=== PATIENT | male | born 1980 | race American Indian/Alaskan Native ===

== ENCOUNTER 2018-09-09 20:02 | Emergency (ER) | payer SELFPAY ==
[2018-09-09 21:12] LABS: Basophils # (Auto) 0.1 K/mm3 (0.0-0.1); Basophils % (Auto) 1.1 % (0.0-1.8); Eosinophils # (Auto) 0.2 K/mm3 (0.0-0.4); Eosinophils % (Auto) 1.6 % (0.0-4.3); Hematocrit 42.5 % (35.5-45.6); Hemoglobin 14.6 gm/dl (11.8-15.2); Lymphocytes # (Auto) 3.1 K/mm3 (1.2-5.4); Lymphocytes % (Auto) 30.8 % (13.4-35.0); Mean Corpuscular HGB Conc 35 % (32-34); Mean Corpuscular Volume 83 fl (84-94); Monocytes # (Auto) 0.7 K/mm3 (0.0-0.8); Monocytes % (Auto) 7.4 % (0.0-7.3); Platelet Count 378 K/mm3 (140-440); Red Blood Count 5.13 M/mm3 (3.65-5.03); Red Cell Distribution Width 14.9 % (13.2-15.2)
[2018-09-09 21:33] LABS: Alanine Aminotransferase 17 units/L (7-56); Albumin 4.2 g/dL (3.9-5); BUN/Creatinine Ratio 12; Blood Urea Nitrogen 11 mg/dL (9-20); Calcium 9.1 mg/dL (8.4-10.2); Hemolysis Index 3
[2018-09-09 22:07] LABS: Bilirubin,Urine NEG (Negative); Blood,Urine NEG (Negative); Color,Urine Yellow (Yellow); Protein,Urine <15 mg/dL mg/dL (Negative); Urobilinogen,Urine < 2.0 mg/dL (<2.0)
[2018-09-09] MEDS ORDERED: TORADOL IV STA (23:54)
[2018-09-09] MEDS ORDERED: ZOFRAN IV STA (23:54)
[2018-09-10] MEDS ORDERED: MORPHINE ONE (02:57)
[2018-09-10] MEDS ORDERED: ZOFRAN ONE (02:57)
[2018-09-10] MEDS ORDERED: ZOFRAN IV ONE (03:00)
[2018-09-10] MEDS ORDERED: MORPHINE IV ONE (03:00)
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
[2018-09-10 04:15] VITALS: BP 132/78
== END 2018-09-10 04:18 | disposition home or self-care (01) ==
LOC: ED 20:02
DX: K59.00 Constipation, unspecified (principal); I10 Essential (primary) hypertension; G47.30 Sleep apnea, unspecified; Z88.0 Allergy status to penicillin; Z91.013 Allergy to seafood
CPT/HCPCS: 36415; 74177; 80053; 81001; 83690; 85025; 96374; 96375; 96376; 99284; J1885; J2270; J2405; Q9967

== ENCOUNTER 2018-10-19 07:42 | Emergency (ER) | payer OTHER ==
[2018-10-19 08:17] LABS: Basophils # (Auto) 0.1 K/mm3 (0.0-0.1); Basophils % (Auto) 0.7 % (0.0-1.8); Eosinophils # (Auto) 0.1 K/mm3 (0.0-0.4); Hematocrit 44.4 % (35.5-45.6); Lymphocytes # (Auto) 4.1 K/mm3 (1.2-5.4); Lymphocytes % (Auto) 37.6 % (13.4-35.0); Mean Corpuscular HGB Conc 34 % (32-34); Mean Corpuscular Volume 82 fl (84-94); Monocytes # (Auto) 0.8 K/mm3 (0.0-0.8); Monocytes % (Auto) 7.7 % (0.0-7.3); Platelet Count 394 K/mm3 (140-440); Red Blood Count 5.44 M/mm3 (3.65-5.03)
[2018-10-19 08:43] LABS: BUN/Creatinine Ratio 13; Blood Urea Nitrogen 9 mg/dL (9-20); Calcium 9.3 mg/dL (8.4-10.2); Hemolysis Index 10
[2018-10-19] MEDS ORDERED: NORCO 5/325 PO ONE (08:43)
--- NOTE | 2018-10-19 09:05 | XRay Report ---
FINAL REPORT EXAM: XR CHEST ROUTINE 2V HISTORY: Shortness of breath TECHNIQUE: Frontal and lateral views of the chest. PRIORS: Chest x-ray July 17, 2018. FINDINGS: Cardiac silhouette is within normal limits. There is no effusion. There is no pneumothorax. There is no consolidation. There are no suspicious osseous lesions. IMPRESSION: No acute cardiopulmonary findings.
--- NOTE | 2018-10-19 09:22 | Emergency Department Report ---
ED Shortness of Breath HPI - General Chief Complaint: Dyspnea/Respdistress Stated Complaint: TROUBLE BREATHING Time Seen by Provider: 10/19/18 08:19 Source: patient Mode of arrival: Ambulatory Limitations: No Limitations - History of Present Illness Initial Comments: Patient is a 38-year-old male who is presenting with chest pain and shortness of breath. Patient states for the past 2-3 days he has had pain in the center chest. States is sharp pain. Patient also has had some trouble breathing and shortness of breath. Pain is worse when he takes a deep breath. Patient denies any cough cold congestion. Patient states he also has a mild headache and feels though is not getting enough oxygen. Patient denies nausea vomiting at this time. She does state that he has chills and possible fever but has not taken his temperature to document an objective fever at this time. - Related Data Previous Rx's Medication Instructions Recorded Last Taken Type Albuterol Sulfate [Ventolin HFA] 2 puff IH Q4H PRN #1 hfa.aer.ad 07/18/18 Unknown Rx Azithromycin [Zithromax Z-LESLI] 1 dose PO DAILY 5 Days tab 07/18/18 Unknown Rx Benzonatate [Tessalon Perles] 100 mg PO Q8HR PRN #30 capsule 07/18/18 Unknown Rx Polyethylene Glycol 3350 [Miralax 17 gm PO QDAY #10 packet 07/18/18 Unknown Rx 3350] Prednisone [predniSONE 10 mg 10 mg PO .TAPER #1 tab.ds.pk 07/18/18 Unknown Rx (6-Day Pack, 21 Tabs)] traMADol [Ultram 50 MG tab] 50 mg PO Q6HR PRN #20 tablet 07/18/18 Unknown Rx Ibuprofen [Motrin 800 MG tab] 800 mg PO Q8HR PRN #20 tablet 07/30/18 Unknown Rx Bisacodyl [Dulcolax suppos] 10 mg ND ONCE #14 supp.rect 09/10/18 Unknown Rx Hyoscyamine Subl [Levsin Sl 0.125 0.125 mg SL Q6HR PRN #20 tab 09/10/18 Unknown Rx TAB] Lactulose [Cephulac] 20 gm PO Q6HR #240 ml 09/10/18 Unknown Rx Ondansetron [Zofran ODT TAB] 8 mg PO Q12HR #14 tab.rapdis 09/10/18 Unknown Rx ALBUTEROL Inhaler (OR & NICU) 2 puff IH QID PRN #1 inhalation 10/19/18 Unknown Rx [ProAir HFA Inhaler] Doxycycline [Vibramycin CAP] 100 mg PO Q12HR #14 capsule 10/19/18 Unknown Rx Ibuprofen [Motrin] 800 mg PO Q8HR PRN #20 tablet 10/19/18 Unknown Rx Allergies Allergy/AdvReac Type Severity Reaction Status Date / Time Penicillins Allergy Angioedema Verified 07/17/18 23:47 shellfish derived Allergy Angioedema Verified 07/17/18 23:47 ED Review of Systems ROS: Stated complaint: TROUBLE BREATHING Other details as noted in HPI Comment: All other systems reviewed and negative ED Past Medical Hx - Past Medical History Previous Medical History?: Yes Hx Hypertension: Yes Additional medical history: sleep apnea, uses BiPAP. diverticulosis - Surgical History Past Surgical History?: Yes Additional Surgical History: left eye - Social History Smoking Status: Never Smoker Substance Use Type: Marijuana - Medications Home Medications: Home Medications Medication Instructions Recorded Confirmed Last Taken Type Albuterol Sulfate [Ventolin HFA] 2 puff IH Q4H PRN #1 hfa.aer.ad 07/18/18 Unknown Rx Azithromycin [Zithromax Z-LESLI] 1 dose PO DAILY 5 Days tab 07/18/18 Unknown Rx Benzonatate [Tessalon Perles] 100 mg PO Q8HR PRN #30 capsule 07/18/18 Unknown Rx Polyethylene Glycol 3350 [Miralax 17 gm PO QDAY #10 packet 07/18/18 Unknown Rx 3350] Prednisone [predniSONE 10 mg 10 mg PO .TAPER #1 tab.ds.pk 07/18/18 Unknown Rx (6-Day Pack, 21 Tabs)] traMADol [Ultram 50 MG tab] 50 mg PO Q6HR PRN #20 tablet 07/18/18 Unknown Rx Ibuprofen [Motrin 800 MG tab] 800 mg PO Q8HR PRN #20 tablet 07/30/18 Unknown Rx Bisacodyl [Dulcolax suppos] 10 mg ND ONCE #14 supp.rect 09/10/18 Unknown Rx Hyoscyamine Subl [Levsin Sl 0.125 0.125 mg SL Q6HR PRN #20 tab 09/10/18 Unknown Rx TAB] Lactulose [Cephulac] 20 gm PO Q6HR #240 ml 09/10/18 Unknown Rx Ondansetron [Zofran ODT TAB] 8 mg PO Q12HR #14 tab.rapdis 09/10/18 Unknown Rx ALBUTEROL Inhaler (OR & NICU) 2 puff IH QID PRN #1 inhalation 10/19/18 Unknown Rx [ProAir HFA Inhaler] Doxycycline [Vibramycin CAP] 100 mg PO Q12HR #14 capsule 10/19/18 Unknown Rx Ibuprofen [Motrin] 800 mg PO Q8HR PRN #20 tablet 10/19/18 Unknown Rx ED Physical Exam - General Limitations: No Limitations General appearance: alert, in no apparent distress - Head Head exam: Present: atraumatic, normocephalic - Eye Eye exam: Present: normal appearance - ENT ENT exam: Present: mucous membranes moist - Neck Neck exam: Present: normal inspection - Respiratory Respiratory exam: Present: normal lung sounds bilaterally. Absent: respiratory distress, wheezes, rales, rhonchi - Cardiovascular Cardiovascular Exam: Present: regular rate, normal rhythm. Absent: systolic murmur, diastolic murmur, rubs, gallop - GI/Abdominal GI/Abdominal exam: Present: soft, normal bowel sounds. Absent: distended, tenderness, guarding, rebound, rigid - Rectal Rectal exam: Present: deferred - Extremities Exam Extremities exam: Present: normal inspection - Back Exam Back exam: Present: normal inspection - Neurological Exam Neurological exam: Present: alert, oriented X3 - Psychiatric Psychiatric exam: Present: normal affect, normal mood - Skin Skin exam: Present: warm, dry, intact, normal color. Absent: rash ED Course Vital Signs 10/19/18 10/19/18 10/19/18 07:52 08:13 08:15 Temperature 98 F Pulse Rate 84 87 Respiratory 20 15 Rate Blood Pressure 167/109 152/99 O2 Sat by Pulse 97 93 97 Oximetry 10/19/18 10/19/18 10/19/18 08:45 09:01 09:15 Temperature Pulse Rate 70 76 77 Respiratory 27 H 30 H 29 H Rate Blood Pressure 152/99 152/99 152/99 O2 Sat by Pulse 95 93 92 Oximetry 10/19/18 10/19/18 09:31 11:31 Temperature Pulse Rate 86 80 Respiratory 17 14 Rate Blood Pressure 152/99 148/108 O2 Sat by Pulse 96 94 Oximetry ED Medical Decision Making - Lab Data Result diagrams: 10/19/18 08:04 10/19/18 08:04 Lab Results 10/19/18 10/19/18 10/19/18 Range/Units 08:04 08:04 08:04 WBC 10.9 (4.5-11.0) K/mm3 RBC 5.44 H (3.65-5.03) M/mm3 Hgb 15.0 (11.8-15.2) gm/dl Hct 44.4 (35.5-45.6) % MCV 82 L (84-94) fl MCH 28 (28-32) pg MCHC 34 (32-34) % RDW 15.0 (13.2-15.2) % Plt Count 394 (140-440) K/mm3 Lymph % (Auto) 37.6 H (13.4-35.0) % [place] % (Auto) 7.7 H (0.0-7.3) % Eos % (Auto) 1.0 (0.0-4.3) % Baso % (Auto) 0.7 (0.0-1.8) % Lymph # 4.1 (1.2-5.4) K/mm3 [place] # 0.8 (0.0-0.8) K/mm3 Eos # 0.1 (0.0-0.4) K/mm3 Baso # 0.1 (0.0-0.1) K/mm3 Seg Neutrophils % 53.0 (40.0-70.0) % Seg Neutrophils # 5.8 (1.8-7.7) K/mm3 D-Dimer (0-234) ng/mlDDU Sodium 138 (137-145) mmol/L Potassium 4.3 (3.6-5.0) mmol/L Chloride 100.2 (98-107) mmol/L Carbon Dioxide 25 (22-30) mmol/L Anion Gap 17 mmol/L BUN 9 (9-20) mg/dL Creatinine 0.7 L (0.8-1.5) mg/dL Estimated GFR > 60 ml/min BUN/Creatinine Ratio 13 % Glucose 107 H (75-100) mg/dL Calcium 9.3 (8.4-10.2) mg/dL NT-Pro-B Natriuret Pep 11.11 (0-450) pg/mL 10/19/18 Range/Units 08:47 WBC (4.5-11.0) K/mm3 RBC (3.65-5.03) M/mm3 Hgb (11.8-15.2) gm/dl Hct (35.5-45.6) % MCV (84-94) fl MCH (28-32) pg MCHC (32-34) % RDW (13.2-15.2) % Plt Count (140-440) K/mm3 Lymph % (Auto) (13.4-35.0) % [place] % (Auto) (0.0-7.3) % Eos % (Auto) (0.0-4.3) % Baso % (Auto) (0.0-1.8) % Lymph # (1.2-5.4) K/mm3 [place] # (0.0-0.8) K/mm3 Eos # (0.0-0.4) K/mm3 Baso # (0.0-0.1) K/mm3 Seg Neutrophils % (40.0-70.0) % Seg Neutrophils # (1.8-7.7) K/mm3 D-Dimer 244.93 H (0-234) ng/mlDDU Sodium (137-145) mmol/L Potassium (3.6-5.0) mmol/L Chloride (98-107) mmol/L Carbon Dioxide (22-30) mmol/L Anion Gap mmol/L BUN (9-20) mg/dL Creatinine (0.8-1.5) mg/dL Estimated GFR ml/min BUN/Creatinine Ratio % Glucose (75-100) mg/dL Calcium (8.4-10.2) mg/dL NT-Pro-B Natriuret Pep (0-450) pg/mL - EKG Data -: EKG Interpreted by Me EKG shows normal: sinus rhythm, axis, intervals, QRS complexes, ST-T waves Rate: normal - EKG Data Interpretation: normal EKG - Radiology Data [facility] [address] [place] [address] Cat Scan Report Signed Patient: LALITA DE LA FUENTE JR MR#: [id number] : 1980 Acct:[id number] Age/Sex: 38 / M ADM Date: 10/19/18 Loc: ED Attending Dr: Ordering Physician: MARCO A FLORES MD Date of Service: 10/19/18 Procedure(s): CT angio chest Accession Number(s): [id number] cc: MARCO A FLORES MD FINAL REPORT EXAM: CT ANGIO CHEST HISTORY: pleura CP with elevated ddimer TECHNIQUE: CTA of chest with IV contrast. Coronal and sagittal and MIP reconstructed images provided. PRIORS: None currently available. FINDINGS: Mild discoid subsegmental atelectasis in both lung bases. Peripheral interseptal thickening. Scattered subtle ground-glass opacities in the perihilar regions. No consolidation. No pneumothorax. No significant effusion. No distinct endobronchial lesions. Main pulmonary artery is unremarkable. No pulmonary embolus. No aortic aneurysm. No dissection. Major branch arteries are patent. Heart size unremarkable. No pericardial effusion. There is no axillary adenopathy. There is no hilar or mediastinal mass or adenopathy. No suspicious osseous lesions on this limited examination of the skeleton. Metastatic disease better evaluated with bone scan. Degenerative changes are present in the spine. IMPRESSION: No pulmonary embolus. No aortic aneurysm. No dissection. Pulmonary findings are nonspecific and may represent bronchiolitis, developing pulmonary congestion and edema, mild inhalation injury, viral pneumonia or acute pneumonitis. Transcribed By: TYM Dictated By: DOTTIE BURTON MD Electronically Authenticated By: DOTTIE BURTON MD Signed Date/Time: 10/19/18 1110 DD/ 1109 TD/TT: 10/19/18 1109 - Medical Decision Making Patient has no pulmonary embolus present on CT. Patient does have some hazy infiltrates present that could have multiple etiologies. Because of the patient's subjective fevers and chills the patient be started on antibiotics for presumptive pneumonitis. Patient also given albuterol inhaler and short course of steroids. Critical care attestation.: If time is entered above; I have spent that time in minutes in the direct care of this critically ill patient, excluding procedure time. ED Disposition Clinical Impression: Pneumonitis Disposition: DC-01 TO HOME OR SELFCARE Is pt being admited?: No Does the pt Need Aspirin: No Condition: Stable Instructions: Pneumonia (ED) Time of Disposition: 12:32
--- NOTE | 2018-10-19 11:10 | Cat Scan Report ---
FINAL REPORT EXAM: CT ANGIO CHEST HISTORY: pleura CP with elevated ddimer TECHNIQUE: CTA of chest with IV contrast. Coronal and sagittal and MIP reconstructed images provided . PRIORS: None currently available. FINDINGS: Mild discoid subsegmental atelectasis in both lung bases. Peripheral interseptal thickening. Scattere d subtle ground-glass opacities in the perihilar regions. No consolidation. No pneumothorax. No signi ficant effusion. No distinct endobronchial lesions. Main pulmonary artery is unremarkable. No pulmonary embolus. No aortic aneurysm. No dissection. Major branch arteries are patent. Heart size unremarkable. No pericardial effusion. There is no axillary adenopathy. There is no hilar or mediastinal mass or adenopathy. No suspicious osseous lesions on this limited examination of the skeleton. Metastatic disease better evaluated with bone scan. Degenerative changes are present in the spine. IMPRESSION: No pulmonary embolus. No aortic aneurysm. No dissection. Pulmonary findings are nonspecific and may represent bronchiolitis, developing pulmonary congestion a nd edema, mild inhalation injury, viral pneumonia or acute pneumonitis.
[2018-10-19 12:46] VITALS: BP 167/87
== END 2018-10-19 12:46 | disposition home or self-care (01) ==
LOC: ED 07:42
DX: J18.9 Pneumonia, unspecified organism (principal); I10 Essential (primary) hypertension; F12.10 Cannabis abuse, uncomplicated; Z88.0 Allergy status to penicillin; Z91.013 Allergy to seafood
CPT/HCPCS: 36415; 71046; 71275; 80048; 83880; 84484; 85025; 85379; 93005; 93010; 99284; Q9967